=== PATIENT | male | born 2000 | race Caucasian/White ===

== ENCOUNTER 2020-06-23 06:29 | Outpatient (RCR) | payer MEDICAID ==
[~2020-06-23] VITALS: Ht 175 cm; Wt 161.8 kg
[2020-06-23] MEDS ORDERED: GUAN4TAB2 PO (14:18)
== END 2020-06-23 14:43 | disposition home or self-care (01) ==
LOC: PREOP 06:29
PROVIDERS: ATTEND Otolaryngology Otolaryngology/Facial Plastic Surgery
DX: Z01.818 Encounter for other preprocedural examination (principal)

== ENCOUNTER 2020-07-01 06:22 | Day surgery (SDC) | payer MEDICAID ==
[2020-07-01] VITALS (11 sets, daily range): BP systolic 131–152; BP diastolic 72–96
[~2020-07-01] VITALS: Ht 175 cm; Wt 161.0 kg
[~2020-07-01 06:22] MED LIST: GUAN4TAB2 PO
[2020-07-01] MEDS ORDERED: LACTATED RINGERS 1,000 ML IV PRN (06:36)
--- NOTE | 2020-07-01 06:56 | Progress Note-Pre Operative ---
Pre-Operative Progress Note H&P Reviewed The H&P was reviewed, patient examined and no changes noted. Date Seen by Provider: Jul 01, 2020 Time Seen by Provider: 06:45 Date H&P Reviewed: Jul 01, 2020 Time H&P Reviewed: 06:45 Pre-Operative Diagnosis: aDENOID hyPER WITH Uao, Chronic PATEL XIMENA KELLER MD Jul 01, 2020 06:56
[2020-07-01] MEDS ORDERED: fentaNYL INJECTION 100 MCG/2 ML AMP ONE (07:21)
[2020-07-01] MEDS ORDERED: SUCCINYLCHOLINE INJ 100 MG/5 ML SYR/VIAL ONE (07:22)
[2020-07-01] MEDS ORDERED: MIDAZOLAM 2 MG/2 ML (VERSED) VIAL ONE (07:22)
[2020-07-01] MEDS ORDERED: proPOfol 200 MG/20 ML (DIPRIVAN) VIAL IV ONE (07:22)
[2020-07-01] MEDS ORDERED: SEVOFLURANE (ULTANE) 15 ML INHAL SOLN ONE ×2 (07:28→08:45)
[2020-07-01] MEDS ORDERED: ONDANSETRON 4 MG/2 ML (SDV) Z0FRAN ONE ×2 (07:28→08:34)
[2020-07-01] MEDS ORDERED: NS IV 1000 ML 1,000 ML IV SCH (08:21)
--- NOTE | 2020-07-01 08:21 | Progress Note-Post Operative ---
Post-Operative Progess Note Surgeon (s)/Nut Chopper (s) Surgeon XIMENA KELLER MD Nut Chopper n/a Pre-Operative Diagnosis aDENOID hyPER WITH Uao, Chronic PATEL Post-Operative Diagnosis same Post-Op Procedure Note Date of Procedure: Jul 01, 2020 Name of Procedure Performed: Right yringotomy with Tube, Adenoidectomy Description & Findings Description and Findings: n/a Anesthesia Type get Estimated Blood Loss minimal Packing none. Specimen(s) collected/removed none XIMENA KELLER MD Jul 01, 2020 08:21
[2020-07-01] MEDS ORDERED: APAP 325 MG/10.15 ML LIQ (TYLENOL) UDC PO PRN (08:30)
[2020-07-01] MEDS ORDERED: HYDROcodone/APAP 5 MG/325 MG (LORTAB) TAB PO PRN (08:30)
[2020-07-01] MEDS ORDERED: diphenhydrAMINE 50 MG/ML INJ (BENADRYL) ONE (08:34)
[2020-07-01] MEDS ORDERED: GLYCOPYRROLATE 0.2 MG/ML (ROBINUL) 2 ML VIAL ONE (08:46)
[2020-07-01] MEDS ORDERED: NEOSTIGMINE 3 MG/3 ML VIAL ONE (08:46)
[2020-07-01] MEDS ORDERED: ROCURONIUM 10 MG/ML 5 ML SYRINGE IV ONE (08:47)
--- NOTE | 2020-07-01 08:53 | Anesthesia-General Post-Op ---
General Patient Condition Mental Status/LOC: Same as Preop Cardiovascular: Satisfactory Nausea/Vomiting: Absent Respiratory: Satisfactory Pain: Controlled Complications: Absent Post Op Complications Complications None Follow Up Care/Instructions Patient Instructions None needed. Anesthesia/Patient Condition Patient Condition Patient is doing well, no complaints, stable vital signs, no apparent adverse anesthesia problems. No complications reported per nursing. YG VINSON CRNA Jul 01, 2020 08:53
[2020-07-01] MEDS ORDERED: morphine INJ 10 MG/ML 1ML (SYR OR VIAL) IVP ONE (09:00)
[2020-07-01] MEDS ORDERED: PROMETHAZINE INJ 25 MG/ML (PHENERGAN) AMP IVP ONE (09:00)
[2020-07-01] MEDS ORDERED: HYDROcodone/APAP 5 MG/325 MG (LORTAB) TAB ONE (09:34)
[2020-07-01] MEDS ORDERED: ACHD5005 PO (09:57)
[2020-07-01] MEDS ORDERED: AMOX250S5 PO (09:57)
[2020-07-01] MEDS ORDERED: OFLO5DRO33 EACH EAR (09:57)
== END 2020-07-01 10:35 ==
LOC: SDC 06:22
PROVIDERS: ATTEND Otolaryngology Otolaryngology/Facial Plastic Surgery
DX: H65.21 Chronic serous otitis media, right ear (principal); J35.2 Hypertrophy of adenoids; F41.9 Anxiety disorder, unspecified; F90.9 Attention-deficit hyperactivity disorder, unspecified type; K21.9 Gastro-esophageal reflux disease without esophagitis; E66.01 Morbid (severe) obesity due to excess calories; Z68.43 Body mass index [BMI] 50.0-59.9, adult; Z79.899 Other long term (current) drug therapy
CPT/HCPCS: 87081

== ENCOUNTER 2022-01-04 05:30 | Outpatient (CLI) | payer MEDICAID ==
[~2022-01-04] VITALS: Ht 178 cm; Wt 163.6 kg
[~2022-01-04 05:30] MED LIST changes: +ACHD5005 PO; +AMOX250S5 PO; +OFLO5DRO33 EACH EAR
== END 2022-01-04 13:56 | disposition home or self-care (01) ==
LOC: PREOP 05:30
PROVIDERS: ATTEND Otolaryngology Otolaryngology/Facial Plastic Surgery
DX: Z01.818 Encounter for other preprocedural examination (principal)

== ENCOUNTER 2022-01-11 06:35 | Day surgery (SDC) | payer MEDICAID ==
[2022-01-11] VITALS (11 sets, daily range): BP systolic 109–162; BP diastolic 67–102
[~2022-01-11] VITALS: Ht 178 cm; Wt 163.6 kg
--- NOTE | 2022-01-11 07:05 | Progress Note-Pre Operative ---
Pre-Operative Progress Note H&P Reviewed The H&P was reviewed, patient examined and no changes noted. Date Seen by Provider: Jan 11, 2022 Time Seen by Provider: 06:45 Date H&P Reviewed: Jan 11, 2022 Time H&P Reviewed: 06:45 Pre-Operative Diagnosis: T/A Hyper with XIMENA Perez MD Jan 11, 2022 07:05
[2022-01-11] MEDS ORDERED: LACTATED RINGERS 1,000 ML IV PRN (07:15)
[2022-01-11 07:33] LABS: BASOPHILS # (AUTO) 0.1 10^3/uL (0.0-0.1); BASOPHILS % (AUTO) 1 % (0-10); EOSINOPHILS # (AUTO) 0.4 10^3/uL (0.0-0.3); EOSINOPHILS % (AUTO) 5 % (0-10); HEMATOCRIT 45 % (40-54); HEMOGLOBIN 15.6 g/dL (13.3-17.7); LYMPHOCYTES # (AUTO) 2.1 10^3/uL (1.0-4.0); LYMPHOCYTES % (AUTO) 28 % (12-44); MEAN CORPUSCULAR HEMOGLOBIN 32 pg (25-34); MEAN CORPUSCULAR HGB CONC 35 g/dL (32-36); MEAN CORPUSCULAR VOLUME 90 fL (80-99); MEAN PLATELET VOLUME 9.8 fL (9.0-12.2); MONOCYTES # (AUTO) 0.8 10^3/uL (0.0-1.0); MONOCYTES % (AUTO) 10 % (0-12); NEUTROPHILS # (AUTO) 4.3 10^3/uL (1.8-7.8); NEUTROPHILS % (AUTO) 57 % (42-75); PLATELET COUNT 318 10^3/uL (130-400); WHITE BLOOD COUNT 7.5 10^3/uL (4.3-11.0)
[2022-01-11] MEDS ORDERED: fentaNYL INJ 100 MCG/2 ML AMP ONE (07:39)
[2022-01-11] MEDS ORDERED: SEVOFLURANE (ULTANE) 15 ML INHAL SOLN ONE (07:39)
[2022-01-11] MEDS ORDERED: LIDOCAINE PF 2% 5 ML (XYLOCAINE) VIAL ONE (07:39)
[2022-01-11] MEDS ORDERED: proPOfol 200 MG/20 ML (DIPRIVAN) VIAL IV ONE (07:39)
[2022-01-11] MEDS ORDERED: ONDANSETRON 4 MG/2 ML (SDV) Z0FRAN ONE (07:39)
[2022-01-11] MEDS ORDERED: MIDAZOLAM 2 MG/2 ML (VERSED) VIAL ONE (07:39)
[2022-01-11] MEDS ORDERED: SUCCINYLCHOLINE INJ 20 MG/1 ML 10 ML VIAL ONE (08:24)
[2022-01-11] MEDS ORDERED: DESFLURANE (SUPRANE) 15 ML INHAL SOLN ONE (08:24)
[2022-01-11] MEDS ORDERED: ROCURONIUM 50 MG/5 ML (ZEMURON) VIAL IV ONE (08:25)
[2022-01-11] MEDS ORDERED: SUGAMMADEX 500 MG/5 ML VIAL (BRIDION) IV ONE (08:30)
--- NOTE | 2022-01-11 08:44 | Progress Note-Post Operative ---
Post-Operative Progess Note Surgeon (s)/Gas Cutting Machine Operator (s) Surgeon XIMENA KELLER MD Gas Cutting Machine Operator n/a Pre-Operative Diagnosis T/A Hyper with uao Post-Operative Diagnosis same Post-Op Procedure Note Date of Procedure: Jan 11, 2022 Name of Procedure Performed: Tonsillectomy Description & Findings Description and Findings: n/a Anesthesia Type get Estimated Blood Loss minimal Packing none. Specimen(s) collected/removed tonsils XIMENA KELLER MD Jan 11, 2022 08:44
[2022-01-11] MEDS ORDERED: APAP 325 MG/10.15 ML LIQ (TYLENOL) UDC PO PRN (08:45)
[2022-01-11] MEDS ORDERED: HYDROcodone/APAP 7.5MG-325 MG/15 ML (LORTAB) UDC PO PRN (08:45)
[2022-01-11] MEDS ORDERED: NS IV 1000 ML 1,000 ML IV SCH (08:45)
[2022-01-11] MEDS ORDERED: ONDANSETRON 4 MG/2 ML (SDV) Z0FRAN IVP PRN (09:00)
[2022-01-11] MEDS ORDERED: HYDROmorphone 2 MG/ML VIAL (DILAUDID) IV ONE (09:00)
[2022-01-11] MEDS ORDERED: HYDROmorphone 2 MG/ML VIAL (DILAUDID) ONE (09:03)
[2022-01-11] MEDS ORDERED: DEXAINTSOL PO (09:04)
[2022-01-11] MEDS ORDERED: AMOX250S5 PO (09:04)
[2022-01-11] MEDS ORDERED: TETRACAINESUCKERS MT (09:04)
[2022-01-11] MEDS ORDERED: HYDR15SO8 PO (09:04)
--- NOTE | 2022-01-11 10:20 | Anesthesia-General Post-Op ---
General Patient Condition Mental Status/LOC: Same as Preop Cardiovascular: Satisfactory Nausea/Vomiting: Absent Respiratory: Satisfactory Pain: Controlled Complications: Absent Post Op Complications Complications None Follow Up Care/Instructions Patient Instructions None needed. Anesthesia/Patient Condition Patient Condition Patient is doing well, no complaints, stable vital signs, no apparent adverse anesthesia problems. No complications reported per nursing. D/C home per [facility] Criteria: Yes CARLEE CAMERON CRNA Jan 11, 2022 10:20
== END 2022-01-11 11:40 | disposition home or self-care (01) ==
LOC: SDC 06:35
PROVIDERS: ATTEND Otolaryngology Otolaryngology/Facial Plastic Surgery
DX: J35.01 Chronic tonsillitis (principal); J35.8 Other chronic diseases of tonsils and adenoids
CPT/HCPCS: 36415; 85025; 87081